=== PATIENT | male | born 2000 | race Asian ===

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

== ENCOUNTER 2020-10-08 12:35 | Outpatient (CLI) | payer BC ==
[~2020-10-08 12:35] MED LIST: Furosemide 40 MG/4 ML VIAL ONE
--- NOTE | 2020-10-08 16:16 | NM ---
RADIONUCLIDE DIURETIC RENOGRAM: 10/08/20 HISTORY: Crossing vessel and stricture of ureter. Left sided abdominal pain and left flank pain. Left UPJ obst ruction. DIURETIC: 21.8 mg IV Lasix administered 20 minutes prior to injection of the radiopharmaceutical. RADIOPHARMACEUTICAL 8 millicuries technetium [id number] injected intravenously. FINDINGS: There is good tracer extraction by the kidneys bilaterally and normal flow. The differential function measures 62% on the left and 38% on the right. There is good tracer excretion into the ureters and urinary bladder. The renogram curves are bilatera lly downsloping with excretion halftimes of 16 minutes on the left and 6 minutes on the right. IMPRESSION: 1. No evidence of high grade obstruction. 2. Differential function measures 62% on the left and 38% on the right. POS: [facility]
== END 2020-10-08 12:36 | disposition home or self-care (01) ==
LOC: NM 12:35
PROVIDERS: ATTEND Urology
DX: N13.5 Crossing vessel and stricture of ureter without hydronephrosis (principal)
CPT/HCPCS: 78708; A4641; A9562; J1940

== ENCOUNTER 2021-05-30 10:18 | Outpatient (CLI) | payer SELFPAY ==
[2021-05-31 01:38] LABS: SARS-CoV-2 PCR by NAA Not Detected (NotDetected)
== END 2021-05-30 10:19 | disposition home or self-care (01) ==
LOC: LABBT 10:18
PROVIDERS: ATTEND Urology
DX: Z01.812 Encounter for preprocedural laboratory examination (principal); N13.1 Hydronephrosis with ureteral stricture, not elsewhere classified; Z20.822 Contact with and (suspected) exposure to COVID-19
CPT/HCPCS: U0003; U0005

== ENCOUNTER 2021-06-02 11:02 | Inpatient (IN) | payer OTHER, SELFPAY ==
[2021-06-02 11:49] LABS: #Basophils 0.1 thou/uL (0.0-0.2); #Eosinphils 0.8 thou/uL (0.0-0.7); #Lymphocytes 2.7 thou/uL (1.20-3.40); #Monocytes 0.4 thou/uL (0.11-0.59); #Neutrophils 2.1 thou/uL (1.40-6.50); %Basophils 1.2 % (0.0-1.0); %Eosinophils 12.7 % (0.0-10.0); %Monocytes 6.1 % (0.0-10.0); Mean Corpuscular HGB CONC 32.1 g/dL (32.0-36.0); Mean Corpuscular Hemoglobin 28.6 pg (27.0-31.0); Mean Corpuscular Volume 88.9 fL (78.0-98.0); Platelet Count 283 thou/uL (130-400); RBC Distribution Width 11.8 % (11.5-14.5); Red Blood Cell (RBC) Count 5.23 mill/uL (4.70-6.10); White Blood Cell (WBC) Count 6.1 thou/uL (4.8-10.8)
[2021-06-02] MEDS ORDERED: Ketorolac Tromethamine 30 MG/ML VIAL ONE (11:51)
[2021-06-02 12:17] LABS: Bilirubin Negative (Negative); Blood, Urine Negative (Negative); Clarity Clear (Clear); Glucose, Urine (Dipstick) Normal (Negative); Ketone, Urine Negative (Negative); Leukocyte Negative Leu/uL (Negative); Nitrite Negative (Negative); Protein, Urine (Dipstick) Negative (Neg-Trace); Specific Gravity, Urine 1.027 (1.002-1.036); Urobilinogen Normal mg/dL (Less than 2); pH, Urine 5.5 (5.0-9.0)
[2021-06-02 12:30] LABS: ALT (SGPT) 13 U/L (8-55); AST (SGOT) 19 U/L (5-34); Albumin 4.6 g/dL (3.5-5.0); Alkaline Phosphatase 91 U/L (40-110); Anion Gap 13 mmol/L (10-20); BUN (Urea Nitrogen) 12 mg/dL (8.9-20.6); Bilirubin, Total 0.3 mg/dL (0.2-1.2); Calc. Creatinine Clearance 0 mL/min (70-130); Calcium 9.5 mg/dL (7.8-10.44); Carbon Dioxide 26 mmol/L (22-29); Chloride 103 mmol/L (98-107); Globulin 3.5 g/dL (2.4-3.5); Glucose 88 mg/dL (70-105); Potassium 3.6 mmol/L (3.5-5.1); Protein, Total 8.1 g/dL (6.0-8.3); Sodium 138 mmol/L (136-145)
[2021-06-02] MEDS ORDERED: Zolpidem Tartrate 5 MG TAB PO PRN (12:59)
[2021-06-02] MEDS ORDERED: Ondansetron PF 4 MG/2 ML Vial IVP PRN (12:59)
[2021-06-02] MEDS ORDERED: Acetaminophen 500 MG TAB PO PRN (12:59)
[2021-06-02] MEDS: Sodium Chloride 0.9% 1,000 ML IV SCH ×2 (17:32→23:34)
[2021-06-02 18:06] VITALS: BMI 18.3
[2021-06-02 21:32] LABS: SARS-CoV-2 PCR by NAA Not Detected (NotDetected)
[2021-06-03] MEDS: Ketorolac Tromethamine 30 MG/ML VIAL IVP PRN ×3 (00:27→18:23)
[2021-06-03] MEDS: Sodium Chloride 0.9% 1,000 ML IV SCH ×5 (01:53→23:34)
[2021-06-03] MEDS: Tamsulosin HCl 0.4 MG CAP PO SCH (08:02)
[2021-06-03] MEDS ORDERED: Iothalamate Meglumine 60% 50 ML VIAL FS ONE (10:27)
[2021-06-03] MEDS ORDERED: Fentanyl 100 MCG/2 ML VIAL ONE (10:29)
[2021-06-03] MEDS ORDERED: ePHEDrine 50 MG/ML VIAL ONE (10:45)
[2021-06-03] MEDS ORDERED: Lidocaine 1% PF 5 ML VIAL ONE (10:45)
[2021-06-03] MEDS ORDERED: Ondansetron PF 4 MG/2 ML Vial ONE (10:45)
[2021-06-03] MEDS ORDERED: Dexamethasone 20 MG/5 ML VIAL ONE (10:45)
[2021-06-03] MEDS ORDERED: PROPOFOL 200 MG/20 ML VIAL ONE (10:45)
[2021-06-03] MEDS ORDERED: Meperidine HCl/PF 25 MG/ML VIAL ONE (11:28)
[2021-06-03] MEDS: Hyoscyamine Sulfate SL 0.125 mg Tablet SL PRN ×2 (13:54→22:49)
[2021-06-03] MEDS: Morphine 4 MG/ML VIAL SLOW IVP PRN ×2 (14:31→20:40)
[2021-06-03] MEDS ORDERED: Sodium Chloride 0.9% 500 ML IVPB SCH (18:45)
[2021-06-04] MEDS: Ketorolac Tromethamine 30 MG/ML VIAL IVP PRN ×3 (02:09→21:53)
[2021-06-04] MEDS: Sodium Chloride 0.9% 1,000 ML IV SCH ×4 (05:05→18:20)
[2021-06-04] MEDS: Morphine 4 MG/ML VIAL SLOW IVP PRN ×3 (06:10→18:46)
[2021-06-04] MEDS: Tamsulosin HCl 0.4 MG CAP PO SCH (08:49)
[2021-06-04] MEDS: Oxybutynin 5 MG TAB PO SCH ×2 (13:11→21:53)
[2021-06-05] MEDS: Sodium Chloride 0.9% 1,000 ML IV SCH ×2 (02:13→11:11)
[2021-06-05] MEDS: Ketorolac Tromethamine 30 MG/ML VIAL IVP PRN ×3 (03:45→14:49)
[2021-06-05] MEDS: Oxybutynin 5 MG TAB PO SCH ×2 (06:37→14:49)
[2021-06-05] MEDS: Phenazopyridine HCl 100 MG TAB PO SCH ×2 (09:15→12:46)
[2021-06-05] MEDS: Tamsulosin HCl 0.4 MG CAP PO SCH (09:15)
[2021-06-05 11:26] VITALS: BP 98/62; TEMP 97.6
[2021-06-05] MEDS ORDERED: FLU VACC QS2021-22(6MOS UP)/PF 60 MCG/0.5 ML SYRINGE IM ONE (20:00)
== END 2021-06-05 15:49 | disposition home or self-care (01) | DRG 661 ==
LOC: ERS 11:02 → ERHOLD 13:01 → T4-A 17:02 → OBSVTOIN 06-05 08:15
PROVIDERS: ADMIT Urology; ATTEND Urology
PROC: 0T778DZ Dilation of Left Ureter with Intraluminal Device, Via Natural or Artificial Opening Endoscopic (ICD-10-PCS; principal; 2021-06-05)
DX: N13.1 Hydronephrosis with ureteral stricture, not elsewhere classified (principal); J45.909 Unspecified asthma, uncomplicated; Z90.49 Acquired absence of other specified parts of digestive tract; Z20.822 Contact with and (suspected) exposure to COVID-19
CPT/HCPCS: 74420; 80053; 81003; 83605; 85025; 87086; 94760; 96374; 96375; 96376; C2617; G0378; J1100; J1885; J2175; J2270; J2405; J2704; J3010; J3490; J7030; J7050; Q9961-U8; U0003; U0005

== ENCOUNTER 2021-06-12 15:41 | Outpatient (CLI) | payer OTHER ==
[2021-06-13 01:42] LABS: SARS-CoV-2 PCR by NAA Not Detected (NotDetected)
== END 2021-06-12 15:42 | disposition home or self-care (01) ==
LOC: LABBT 15:41
PROVIDERS: ATTEND Urology
DX: Z01.812 Encounter for preprocedural laboratory examination (principal); N13.5 Crossing vessel and stricture of ureter without hydronephrosis; Z20.822 Contact with and (suspected) exposure to COVID-19
CPT/HCPCS: U0003; U0005

== ENCOUNTER 2021-06-17 07:02 | Day surgery (SDC) | payer OTHER ==
[2021-06-16 11:30] VITALS: BMI 18.3
[2021-06-17] MEDS ORDERED: Ioversol 68 % 50 ML VIAL ONE (08:20)
[2021-06-17] MEDS ORDERED: Fentanyl 100 MCG/2 ML VIAL ONE (08:26)
[2021-06-17] MEDS ORDERED: Ondansetron PF 4 MG/2 ML Vial ONE (08:38)
[2021-06-17] MEDS ORDERED: Lidocaine 1% PF 5 ML VIAL ONE (08:38)
[2021-06-17] MEDS ORDERED: PROPOFOL 200 MG/20 ML VIAL ONE (08:38)
[2021-06-17] MEDS ORDERED: Phenazopyridine HCl 100 MG TAB ONE (09:08)
[2021-06-17] MEDS ORDERED: Oxybutynin 5 MG TAB ONE (09:08)
[2021-06-17] MEDS ORDERED: Ketorolac Tromethamine 30 MG/ML VIAL ONE (09:08)
[2021-06-17] MEDS ORDERED: HYDROcodone/Acetaminophen 5/325 mg Tablet ONE (10:43)
== END 2021-06-17 11:30 | disposition home or self-care (01) ==
LOC: SDC 07:02
PROVIDERS: ATTEND Urology
PROC: 0TP98DZ Removal of Intraluminal Device from Ureter, Via Natural or Artificial Opening Endoscopic (ICD-10-PCS; principal; 2021-06-17)
PROC: BT1F1ZZ Fluoroscopy of Left Kidney, Ureter and Bladder using Low Osmolar Contrast (ICD-10-PCS; principal; 2021-06-17)
DX: N13.1 Hydronephrosis with ureteral stricture, not elsewhere classified (principal); J45.909 Unspecified asthma, uncomplicated; Z79.899 Other long term (current) drug therapy; Z91.010 Allergy to peanuts; Z91.018 Allergy to other foods
CPT/HCPCS: 74420; J1885; J2405; J2704; J3010; Q9967